=== PATIENT | female | born 2000 | race Caucasian/White ===

== ENCOUNTER 2021-11-15 11:30 | Outpatient (CLI) | payer OTHER, SELFPAY ==
--- NOTE | 2021-11-15 11:50 | ECG_ITS ---
Measurements Intervals [place] Rate: 62 P: 56 NM: 149 QRS: 83 QRSD: 98 T: 14 QT: 385 QTc: 394 Interpretive Statements SINUS RHYTHM INCOMPLETE RIGHT BUNDLE BRANCH BLOCK BASELINE WANDER- I, II, AVR, AVL, AVF BORDERLINE ECG Electronically Signed On 11-15-2021 12:44:09 CDT by Robert Johnson D.O.
== END 2021-11-15 11:31 | disposition home or self-care (01) ==
PROVIDERS: PCP Family Medicine; Visit Provider Physician Assistant Medical
DX: U07.1 COVID-19 (principal); R06.02 Shortness of breath; I45.10 Unspecified right bundle-branch block
CPT/HCPCS: 93005

== ENCOUNTER 2021-11-22 09:53 | Outpatient (CLI) | payer OTHER, SELFPAY ==
--- NOTE | 2021-11-22 09:57 | ECHO_ITS ---
Patient Info Name: Janki Penn Age: 21 years : 2000 Gender: Female Ht: 64 in Wt: 140 lbs BSA: 1.70 m2 HR: 65 bpm BP: 106 / 86 mmHg Technical Quality: Fair Exam Date: 11/22/2021 10:21 AM Exam Location: [facility] Patient Status: Outpatient Admit Date: 11/22/2021 Staff Ordering Physician: Tamara Patterson PAC Vp Corporate Development: Reagan Luna RDCS, RT Attending Provider: Tamara Patterson PAC Referring Physician: Leonardo LANDIN; Exam Type: CA echo doppler color flow Study Info Indications R94.31 - Abnormal electrocardiogram ECG EKG Complete two-dimensional, color flow and Doppler transthoracic echocardiogram is performed. Summary 1. Complete two-dimensional, color flow and Doppler transthoracic echocardiogram is performed. 2. Left ventricular chamber dimension is normal. 3. Left ventricular systolic function is normal, estimated at 60-65%. 4. The left ventricular diastolic function is normal. 5. E/e' 5 is not elevated. 6. There is trace tricuspid valve regurgitation. 7. The pericardium appears increased echogenicity of the posterior pericardium with significant thickness measuring 0.4 cm. Left Ventricle E/e' 5 is not elevated. Left ventricular chamber dimension is normal. Left ventricular systolic function is normal, estimated at 60-65%. The left ventricular diastolic function is normal. Right Ventricle Right ventricular systolic function is normal and with normal TAPSE 1.8 cm. Right ventricular chamber dimension is normal. Left Atria Left atrial chamber dimension is normal. Right Atria Right atrial chamber dimension is normal. Aortic Valve The aortic valve is trileaflet. There is no aortic valve stenosis. There is no aortic valve regurgitation. Pulmonic Valve There is no pulmonic regurgitation. Mitral Valve There is no mitral valve stenosis. There is no mitral valve regurgitation. Tricuspid Valve RVSP is not calculated due to an inadequate TR jet. There is trace tricuspid valve regurgitation. Pericardium/Pleural The pericardium appears increased echogenicity of the posterior pericardium with significant thickness measuring 0.4 cm. There is no pericardial effusion. Inferior Vena Cava Normal inferior vena cava with >50% collapse upon inspiration consistent with normal right atrial pressure, 5 mmHg. Aorta The aortic root size at the sinus of Valsalva is normal. Left Ventricular Outflow Tract Name Value Normal LVOT 2D LVOT Diameter 1.9 cm LVOT Doppler LVOT Peak Gradient 3 mmHg LVOT Mean Gradient 1 mmHg LVOT VTI 17 cm LVOT VTI/AV VTI Ratio 0.7 LVOT Stroke Volume 47 ml LVOT CO 3.4 l/min LVOT CI 2.0 l/min/m2 Mitral Valve Name Value Normal MV Doppler
== END 2021-11-22 09:54 | disposition home or self-care (01) ==
LOC: ANHCARD 09:55
PROVIDERS: PCP Family Medicine; Visit Provider Physician Assistant Medical
DX: R94.31 Abnormal electrocardiogram [ECG] [EKG] (principal); R06.02 Shortness of breath
CPT/HCPCS: 93306

== ENCOUNTER 2024-10-12 09:53 | Outpatient (CLI) | payer OTHER, SELFPAY ==
--- OUTSIDE RECORDS SUMMARY | 2024-10-12 09:57 | XMS_ITS | Clinical Summary ---
Author Organization [facility] Address [address] [place] [address] Phone Care Team Providers Care Procurement Analyst Name Role Phone Kalyn Church MD Primary Care Provider [phone] Allergies Active Allergy Reactions Criticality Noted Date Comments Azithromycin Rash Low 09/09/2010 Cephalexin Rash Low 09/09/2010 Medications pediatric multivitamins (KID'S VITAMINS) Oral Chew Take 1 Tab by mouth daily. 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 01/11/2017 Family History Medical History Relation Name Comments Cancer Father burkittis lymph ryan (14 years ago) Healthy Father Other Father Graves disease twice/ headaches (had one that affected speech stroke was ruled out) Healthy Mother Other Mother UC lg intestine removed Congenital Heart Defect Neg Hx Inheritable Arrhythmias Neg Hx Sudden Neg Hx Relation Name Status Comments Father Mother Social History Tobacco Use Types Packs/Day Years Used Date Smoking Tobacco: Never Smokeless Tobacco: Never Alcohol Use Standard Drinks/Week Comments No 0 (1 standard drink = 0.6 oz pur e alcohol) Comments No Sex and Gender Information Value Date Recorded Sex Assigned at Not on file Legal Sex Female 4:21 AM DESKTOP SUPPORT ASSOCIATE Gender Identity Not on file Sexual Orientation Not on file Occupation Industry Job Start Date Job End Date Not on file Not on file Not on file Not on file Last Filed Vital Signs Vital Sign Reading Time Taken Comments Blood Pressure 110/64 01/11/2017 9:55 AM CDT Pulse 78 10/01/2015 9:40 AM CDT Temperature 36.6 C (97.8 F) 09/10/2010 8:35 AM DESKTOP SUPPORT ASSOCIATE Respiratory Rate 18 10/01/2015 9:40 AM CDT Oxygen Saturation 100% 09/09/2010 12:00 PM DESKTOP SUPPORT ASSOCIATE Inhaled Oxygen Concentration - - Weight 58.7 kg (129 lb 6.4 oz) 01/11/2017 9:55 A M CDT Height 162 cm (5' 3.78 ) 01/11/2017 9:55 AM CDT Body Mass Index 22.36 01/11/2017 9:55 AM CDT Plan of Treatment Health Maintenance Due Date Last Done Comments HPV VACCINES (1 - 3-dose series) 2015 DTAP/TDAP/TD VACCINES (1 - Tdap) 2019 HEPATITIS B VACCINES (1 of 3 - 19+ 3-dose series) 02/14 CERVICAL CANCER SCREENING 2021 PAP SMEAR 2021 PAP SMEAR 2021 INFLUENZA VACCINE (#1) 2024 Insurance OPTIONS PPO [id number] [facility] [address] OPTIONS PPO [id number] Advance Directives For more information, please contact: [phone] * Full Code (Latest Code Status on File) Date Activated Date Inactivated Comments 09/09/2010 1:26 PM 09/10/2010 2:13 PM Care Teams Procurement Analyst Relationship Specialty Start Date End Date Kalyn Church MD PCP - General Pediatrics 01/24/12
--- OUTSIDE RECORDS SUMMARY | 2024-10-12 09:57 | XMS_ITS | Continuity of Care Document ---
Author Organization [facility] Address [address] [address] Phone Care Team Providers Care Senior Research Associate Name Role Phone Alexis Ennis MD Unavailable Unavailable Allergies, Adverse Reactions, Alerts Substance Reaction Status Criticality CEPHALEXIN MONOHYDRATE rash Active No In formation azithromycin rash Active No Information Medications Medication Instructions Dosage Effective Dates (start - stop) Status Comments Pari 180 mg tablet - Active Procedures Procedure Date OFFICE/OUTPATIENT VISIT EST Advance Directives Directive Yes / No Effective Date File Name No Information Encounters Encounter Description Practice Location Reason(s) For Visit Diagnoses Date Provider Providers Copied on Encounter [facility], [address] [place] [address], [facility], [phone] [facility] Spastic diplegic cerebral palsyAdolescent idiopathic scoliosis of lumbar regionAdolescen t idiopathic scoliosis of thoracic region 9 Raymon Espinoza. [address], [place], [address]. tel: [phone] [facility], [address] [place] [address], [address], [phone] [facility] Spastic diplegic cerebral palsyAdolescent idiopathic scoliosis of thoracic regionAdolescen t idiopathic scoliosis of lumbar regionAcquired planovalgus deformity of left foot 9 Raymon Espinoza. [address], [place], [address]. tel: [phone] [facility], [address], [address], tel:[phone] [facility] Adolescent idiopathic scoliosis of lumbar regionAdolescen t idiopathic scoliosis of thoracic regionSpastic diplegic cerebral palsy Feb-2 1-201 8 Wild Evelyn . [address] [place], [place], [id number] . tel: [phone] OFFICE/OUTPA TIENT VISIT EST [facility], [address] [place] [address], [address], tel:[phone] [facility] Neck Pain (chief complaint) Hallux valgus, leftAcquired planovalgus deformity of left footAcquired unequal limb length of left femurCervical strain, initial encounterMuscul ar torticollisMusc uloskeletal back painAdolescent idiopathic scoliosis of thoracic regionAdolescen t idiopathic scoliosis of lumbar regionOther acquired deformities of right foot Feb-1 3-201 7 Wild Rivas . [address] [place], [place], [id number] . tel: [phone] [facility], [address] [place] [address], [address], [phone] [facility] Spastic diplegia Sep-1 0-201 5 Stav[place]. [address] [place] [address], [id number] . tel: [phone] Family History Family Member Type Diagnosis Age At Onset No Information Payers Payer name Insurance type Covered democrat ID Authoriza tion(s) No Information Social History Type Description Quantity Date Captured Comments Sex Female Smoking Status No Information Chief Complaint And Reason For Visit No Information Reason For Referral Reason For Referral No Information Plan Of Treatment Date Type Action Status Referral Ordered: MRI SPI CANAL&CNTS LMBR C-MATRL Bilateral spine, lumbar Appointment date/timeframe: 08/15/2018 ordered Referral Ordered: RADEX SPI CRV MINIMUM 4 VIEWS ordered Referral Ordered: X-RAY EXAM ENTIRE SPI 1 VW ordered Referral Ordered: RADEX SPI ENTIRE SURV STD ANTEROPOST&LAT ordered Referral Ordered: RADEX PELVIS 1/2 VIEWS ordered History Of Present Illness Encounter Date Complaint History Of Prese nt Illness Neck Pain Functional Status Date Functional Assessmen t No Information Instructions Date Instruction Additional Infor mation No Information Assessments Type Assessment Date assessment Spastic diplegic cerebral palsy assessment Adolescent idiopathic scoliosis of lumbar region assessment Adolescent idiopathic scoliosis of thoracic region Patient Care Teams Name Effective Dates (start - stop) Status Members No Information
--- OUTSIDE RECORDS SUMMARY | 2024-10-12 09:57 | XMS_ITS | Encounter Summary ---
Author Organization [facility] Address [address] [place] [address] Care Team Providers Care Mortuary Beautician Name Role Phone Kalyn Church MD Primary Care Provider [phone] Encounter Details Date Type Department Care Team (Latest Contact Info) Description 12/18/2006 Outpatient Historical [facility] Luisito Lira MD Other Convulsions (CMS/HCC) (Primary Dx) Social History Tobacco Use Types Packs/Day Years Used Date Smoking Tobacco: Never Assessed Comments Unknown Sex and Gender Information Value Date Recorded Sex Assigned at Not on file Legal Sex Female 4:21 AM LINEN ROOM WORKER Gender Identity Not on file Sexual Orientation Not on file documented as of this encounter Plan of Treatment Not on file documented as of this encounter Visit Diagnoses Diagnosis Other convulsions- Primary documented in this encounter Care Teams Mortuary Beautician Relationship Specialty Start Date End Date Kalyn Church MD PCP - General Pediatrics 01/24/12 documented as of this encounter
--- OUTSIDE RECORDS SUMMARY | 2024-10-12 09:57 | XMS_ITS | Encounter Summary ---
Author Organization [facility] Address [address] [place] [address] Care Team Providers Care Scabbler Name Role Phone Kalyn Church MD Primary Care Provider [phone] Encounter Details Date Type Department Care Team (Late st Contact Info) Description 07/01/2005 Outpatient Historical [facility] Department of Peds at [address] [phone] Guevara Ochoa MD NO ADDRESS ON FILE Social History Tobacco Use Types Packs/Day Years Used Date Smoking Tobacco: Never Assessed Comments Unknown Sex and Gender Information Value Date Recorded Sex Assigned at Not on file Legal Sex Female 4:21 AM PROJECT SYSTEMS ENGINEER Gender Identity Not on file Sexual Orientation Not on file documented as of this encounter Plan of Treatment Not on file documented as of this encounter Visit Diagnoses Not on filedocumented in this encounter Care Teams Scabbler Relationship Specialty Start Date End Date Kalyn Church MD PCP - General Pediatrics 01/24/12 documented as of this encounter
--- OUTSIDE RECORDS SUMMARY | 2024-10-12 09:57 | XMS_ITS | Referral Summary ---
Author Organization [facility] Address [address] [place] [address] Care Team Providers Care Transport Rn Name Role Phone Demetrius Carbone MD Primary Care Provider Encounters Date Type Department Care Team Description 09/20/2024 6:30 PM SCRAP CARRIER Office Visit [facility] at [address] [address] Matt Whitaker NP Acute maxillary sinusitis, recurrence not specified (Primary Dx); Elevated blood pressure reading in office without diagnosis of hypertension from Last 3 Months Allergies Active Allergy Reactions Criticality Noted Date Comments Azithromycin Other (See comments),Rash Medium 09/09/2010 Reaction: UNKNOWN, , Reaction: Cephalexin Other (See comments),Rash Medium 09/09/2010 Reaction: UNKNOWN, , Reaction: Medications multivitamin capsule Take 1 capsule by mouth daily Active mometasone (NASONEX) 50 mcg/actuation nasal spray USE 2 SPRAY(S) IN EACH NOSTRIL ONCE DAILY NEEDED FOR ALLERGIES 0 Active norgestimate-et hinyl estradioL (ORTHO-CYCLEN) 0.25-35 mg-mcg per tablet Take 1 tablet by mouth daily 84 tablet 3 4 05/10/20 25 Active amoxicillin-cla vulanate (AUGMENTIN) suspension 400-57 mg/5 mLIndications:A cute maxillary sinusitis, recurrence not specified Take 10.9375 mL (875 mg of amoxicillin total) by mouth 2 (two) times a day for 7 days 153.5 mL 5 09/28/19 25 Active Problems Problem Noted Date Diagnosed Date COVID-19 10/26/2021 Allergic rhinitis 12/13/2018 Assessment & Plan (01/09/2019 2:01 PM CDT): Continue nasal saline and Nasacort Continue Pari Will call with Allergy blood test and hearing test Assessment & Plan (12/13/2018 4:58 PM CDT): Blood allergy testing - call with results Continue Pari Nasal saline (ocean spray, simply saline) Nasacort 2 sprays into each nostril while looking down over the sink, do not sniff in or blow nose after use. Follow up in 6 weeks Hearing test Dysfunction of both eustachian tubes 12/13/2018 Assessment & Plan (01/09/2019 3:03 PM CDT): Continue nasal saline and Nasacort Continue Pari Will call with Allergy blood test and hearing test Assessment & Plan (12/13/2018 4:59 PM CDT): Blood allergy testing - call with results Continue Pari Nasal saline (ocean spray, simply saline) Nasacort 2 sprays into each nostril while looking down over the sink, do not sniff in or blow nose after use. Follow up in 6 weeks Hearing test Hearing loss 12/13/2018 Assessment & Plan (01/09/2019 3:03 PM CDT): Hearing test on Monday, call with results - hearing 90% better Assessment & Plan (12/13/2018 4:59 PM CDT): Blood allergy testing - call with results Continue Pari Nasal saline (ocean spray, simply saline) Nasacort 2 sprays into each nostril while looking down over the sink, do not sniff in or blow nose after use. Follow up in 6 weeks Hearing test Vasovagal syncope 09/23/2015 Dizziness 09/23/2015 Infectious warts 05/12/2011 Migraine without aura and wi thout status migrainosus, not intractable 02/02/2011 Spastic diplegia 02/02/2011 Chronic infection of sinus 10/06/2010 Constipation 11/18/2009 Cerebral palsy 11/18/2009 Overview (10/26/2017): Description: Mild Epilepsy 11/18/2009 Immunizations Immunization Administration Dates Next Due DTaP / HiB 06/12/2001 DTaP, Unspecified 01/27/2005, 1,2000,05/02 Hep A, Unspecified 01/30/2008,02/08/2007 Hep B / HiB 2000 Hep B, Unspecified 2000,2000 HiB 2000,2000 IPV 01/27/2005, 1,2000,05/02 Influenza, Quadrivalent, Liz l Culture-based MDCK, Antibiotic Free, Intramuscular 04/30/2019 Influenza, Quadrivalent, Spl it, Preservative Free, Intramuscular 05/08/2020,04/29/2018,04/28/2018,05/25,05/01/2014 Influenza, Trivalent, IM (MDV) 04/11/2013 Influenza, Trivalent, Preser vative Free, Intramuscular 05/12/2017,05/08/2015 MMR 01/27/2005,03/22/2001 Meningococcal Conjugate (Menveo) 01/18/2018,01/14 Pneumococcal Conjugate, Unspecified 05/18,2000,2000,05/02 Tdap 02/01/2012 Varicella 01/13/2015,03/22/2001 Social History Tobacco Use Types Packs/Day Years Used Date Smoking Tobacco: Never Smokeless Tobacco: Never Tobacco Cessation:Counseling Given: Not Answered Alcohol Use Standard Drinks/Week Comments Never 0 (1 standard drink = 0.6 oz pur e alcohol) AUDIT-C Answer Date Recorded Q1: How often do you have a drink containing alc ohol? Never 04/15/2024 Average Number of Drinks Not on file 024 Q3: How often do you have si x or more drinks on one occasion? Never 04/15/2024 Exercise Vital Sign Answer Date Recorde d On average, how many days pe r week do you engage in moderate to strenuous exercise (like a brisk walk)? 3 days 06/19/2020 On average, how many minutes do you engage in exercise at this level? 30 min 06/19/2020 Personal Safety Answer Date Recorded Have you ever been in or are you currently in a harmful physical or emotional relationship or is someone making you feel afraid or unsafe? Denies 11/21/2022 Comments No Sex and Gender Information Value Date Recorded Sex Assigned at Not on file Legal Sex Female 11:07 PM SCRAP CARRIER Gender Identity Not on file Sexual Orientation Not on file Last Filed Vital Signs Vital Sign Reading Time Taken Comments Blood Pressure 120/92 09/20/2024 6:32 PM SCRAP CARRIER Pulse 82 09/20/2024 6:32 PM SCRAP CARRIER Temperature 36.4 C (97.6 F) 09/20/2024 6:32 PM SCRAP CARRIER Respiratory Rate 22 09/20/2024 6:32 PM SCRAP CARRIER Oxygen Saturation 100% 09/20/2024 6:32 PM SCRAP CARRIER Inhaled Oxygen Concentration - - Weight 65.8 kg (145 lb) 09/20/2024 6:32 PM SCRAP CARRIER Height 160 cm (5' 3 ) 09/20/2024 6:32 PM SCRAP CARRIER Body Mass Index 25.69 09/20/2024 6:32 PM SCRAP CARRIER Plan of Treatment Not on file Insurance [employer] [employer] [facility] ACCESS CHOICE Care Teams Transport Rn Relationship Specialty Start Date End Date Demetrius Carbone MD PCP - General 01/09/19
--- OUTSIDE RECORDS SUMMARY | 2024-10-12 09:57 | XMS_ITS | Clinical Summary ---
Author Organization [facility] Address [address] [address] Care Team Providers Care Air Grinder Name Role Phone Kalyn Church MD Primary Care Provider [phone] Source Comments [facility],non-owned Affiliates and Associated Physician Practices is amultiple site organization consisting of ambulatory clinics and hospital sitesin [place], [place], [place] and [place]. This disclosure is being madepursuant to the Care Everywhere program and may not contain all information available regarding this patient. Last updated 18.[facility] Allergies Active Allergy Reactions Criticality Noted Date Comments Cephalexin 06/04/2017 Orapred Other 06/04/2017 shaky Pseudoephedrine Base Other 06/04/2017 Makes pt shaky Azithromycin 06/04/2017 Medications * Be aware that medications may not be up to date on this document. Alwaysverify current medications with the patient. Medication Sig Dispensed Refills Start Date End Date Status Fexofenadine HCl (MADHU PO) Active Triamcinolone Acetonide (NASACORT ALLERGY 24HR NA) Active Multiple Vitamins-Minerals (MULTIVITAMIN ADULT PO) Active amoxicillin clavulanate (AUGMENTIN ES) 600-42.9 MG/5ML suspensionIndication s:Acute ethmoidal sinusitis, recurrence not specified 7mls PO BID for 10 days for sinus infection 145 mL 10/05/2018 Active Additional Information Patient not taking.Reported on 11/21/2018 Family History Medical History Relation Name Comments Cancer - Other Father lymphoma Thyroid Disease Father Ulcerative Colitis Mother Relation Name Status Comments Father Mother Social History Tobacco Use Types Packs/Day Years Used Date Smoking Tobacco: Never Smokeless Tobacco: Never Sex and Gender Information Value Date Recorded Sex Assigned at Not on file Gender Identity Not on file Sexual Orientation Not on file Last Filed Vital Signs Vital Sign Reading Time Taken Comments Blood Pressure 110/72 11/21/2018 10:12 AM CDT Pulse 87 11/21/2018 10:12 AM CDT Temperature 37.1 C (98.7 F) 11/21/2018 10:12 AM CDT Respiratory Rate 16 11/21/2018 10:12 AM CDT Oxygen Saturation 98% 11/21/2018 10:12 AM CDT Inhaled Oxygen Concentration - - Weight 60.8 kg (134 lb) 11/21/2018 10:12 AM CDT Height 162.6 cm (5' 4 ) 11/21/2018 10:12 AM CDT Body Mass Index 23 11/21/2018 10:12 AM CDT Plan of Treatment Health Maintenance Due Date Last Done Comments PAP SMEAR 2000 HIV SCREENING 2015 HPV VACCINE (1 - 3-dose series) 2015 CHLAMYDIA/GONORRHEA SCREENING 2016 HEPATITIS C SCREENING 02/26/2018 DTAP/TDAP/TD VACCINES (1 - Tdap) 2019 HEPATITIS B VACCINE (1 of 3 - 19+ 3-dose series) 2019 COVID-19 VACCINE (1 - 2023-2 5 season) 2024 INFLUENZA VACCINE (#1) 2024 DEPRESSION SCREENING 07/17/2024 ZOSTER VACCINE (1 of 2) 2050 HIB VACCINE Aged Out No longer eligi ble based on patient's age to complete this topic MENINGOCOCCAL (Group B) VACC INE SHARED DECISION-MAKING Aged Out No longer eligibl e based on patient's age to complete this topic MENINGOCOCCAL GROUPS A/C/Y/W VACCINE Aged Out No longer eligible b ased on patient's age to complete this topic PNEUMOCOCCAL VACCINE Aged Out No long er eligible based on patient's age to complete this topic Care Teams Air Grinder Relationship Specialty Start Date End Date Kalyn Church MD [address] [address] PCP - General Pediatrics 06/04/17
--- OUTSIDE RECORDS SUMMARY | 2024-10-12 09:57 | XMS_ITS | Encounter Summary ---
Author Organization [employer] Address [address] [place] [address] Care Team Providers Care Patient Services Assistant Name Role Phone Kalyn Church MD Primary Care Provider [phone] Encounter Details Date Type Department Care Team (Latest Contact Info) Description 02/18/2002 Outpatient Historical [facility] Luisito Lira MD CONGENITAL DIPLEGIA (CMS/HCC) (Primary Dx) Social History Tobacco Use Types Packs/Day Years Used Date Smoking Tobacco: Never Assessed Comments Unknown Sex and Gender Information Value Date Recorded Sex Assigned at Not on file Legal Sex Female 4:21 AM DOLL MAKER Gender Identity Not on file Sexual Orientation Not on file documented as of this encounter Plan of Treatment Not on file documented as of this encounter Visit Diagnoses Diagnosis Congenital diplegia (CMS/HCC)- Primary Congenital diplegia documented in this encounter Care Teams Patient Services Assistant Relationship Specialty Start Date End Date Kalyn Church MD PCP - General Pediatrics 01/24/12 documented as of this encounter
--- OUTSIDE RECORDS SUMMARY | 2024-10-12 09:57 | XMS_ITS | Encounter Summary ---
Author Organization [facility] Address [address] [place] [address] Care Team Providers Care Rubber Gasket Inspector Trimmer Name Role Phone Kalyn Church MD Primary Care Provider [phone] Encounter Details Date Type Department Care Team (Late st Contact Info) Description 07/01/2005 Outpatient Historical [facility] Department of Peds at [address] [phone] Guevara Ochoa MD NO ADDRESS ON FILE Social History Tobacco Use Types Packs/Day Years Used Date Smoking Tobacco: Never Assessed Comments Unknown Sex and Gender Information Value Date Recorded Sex Assigned at Not on file Legal Sex Female 4:21 AM ISSUE CLERK Gender Identity Not on file Sexual Orientation Not on file documented as of this encounter Plan of Treatment Not on file documented as of this encounter Visit Diagnoses Not on filedocumented in this encounter Care Teams Rubber Gasket Inspector Trimmer Relationship Specialty Start Date End Date Kalyn Church MD PCP - General Pediatrics 01/24/12 documented as of this encounter
--- OUTSIDE RECORDS SUMMARY | 2024-10-12 09:57 | XMS_ITS | Clinical Summary ---
Author Organization [facility] Address [address] [place] [address] Care Team Providers Care Combine Inspector Name Role Phone Demetrius Carbone MD Primary Care Provider [phone] Allergies Active Allergy Reactions Criticality Noted Date [...] 11/18/2009 Overview (10/26/2017): Description: Mild Epilepsy 11/18/2009 Encounters Date Type Department Care Team Description 09/20/2024 6:30 PM NETWORK SYSTEMS ANALYST Office Visit [facility] at [address] [address] Matt Whitaker NP Acute maxillary sinusitis, recurrence not specified (Primary Dx); Elevated blood pressure reading in office without diagnosis of hypertension from Last 3 Months Immunizations Immunization Administration Dates Next Due DTaP [...] Conjugate, Unspecified 05/18,2000,2000,05/02 Tdap 02/01/2012 Varicella 01/13/2015,03/22/2001 Surgical History Surgery Date Site/Laterality Comments TYMPANOSTOMY TUBE PLACEMENT Ear Pressure Equalization Tube, Insertion, Bilaterally - (Added by TW Conv) FUNCTIONAL ENDOSCOPIC SINUS SURGERY 07/17/2009 - 07/16/2010 Bilateral ADENOIDECTOMY Medical History Medical History Date Comments Allergic 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 Cerebral palsy (HCC) Gastric reflux Migraines Family History Medical History Relation Name Comments Lymphoma Father Pancreatitis Other 1 Pancreatic Diso rders - (Added by TW Conv) Seizures Other 2 Convulsions - ( Added by TW Conv) Intestinal polyp Other 3 Benign Poly ps Of The Large Intestine - (Added by TW Conv) Constipation Other 4 Constipation - (Added by TW Conv) Irritable bowel syndrome Other 5 Irr itable Bowel Syndrome - (Added by TW Conv) Heart disease Other 6 Heart Disease - (Added by TW Conv) Asthma Other 7 Asthma - (Added by TW Conv) Hypertension Other 8 Hypertension - (Added by TW Conv) Migraines Other 9 Migraine Headac he - (Added by Conv) Relation Name Status Comments Father Other 1 Other 2 Other 3 Other 4 Other 5 Other 6 Other 7 Other 8 Other 9 Social History Tobacco Use Types Packs/Day Years [...] on file Legal Sex Female 11:07 PM NETWORK SYSTEMS ANALYST Gender Identity Not on file Sexual Orientation Not on file Obstetrics History Para Term AB IAB SAB Ectopic Multiple Livin g Live Births 0 0 0 0 0 0 0 0 0 0 0 Last Filed Vital Signs Vital Sign Reading Time Taken Comments Blood Pressure 120/92 09/20/2024 6:32 PM NETWORK SYSTEMS ANALYST Pulse 82 09/20/2024 6:32 PM NETWORK SYSTEMS ANALYST Temperature 36.4 C (97.6 F) 09/20/2024 6:32 PM NETWORK SYSTEMS ANALYST Respiratory Rate 22 09/20/2024 6:32 PM NETWORK SYSTEMS ANALYST Oxygen Saturation 100% 09/20/2024 6:32 PM NETWORK SYSTEMS ANALYST Inhaled Oxygen Concentration - - Weight 65.8 kg (145 lb) 09/20/2024 6:32 PM NETWORK SYSTEMS ANALYST Height 160 cm (5' 3 ) 09/20/2024 6:32 PM NETWORK SYSTEMS ANALYST Body Mass Index 25.69 09/20/2024 6:32 PM NETWORK SYSTEMS ANALYST Plan of Treatment Health Maintenance Due Date Last Done Comments Cervical Cancer Screening 2000 Depression Screening 2000 Hepatitis C Screening 2000 DTaP/Tdap/Td Vaccine (7 - Td or Tdap) 01/31/2022 02/01/2012, 01/27/2005, 06/12/2001, Additional history exists Influenza Vaccine (#1) 2024 , 05/08/2020, 04/30/2019, Additional history exists Regular Well Visit/Exam 18-64 04/15/2025 04/15/2024, 06/19/2020 Hepatitis B Screening Completed 2000 , 2000, 2000 Pneumococcal vaccine <65 Completed 001, 2000, 2000, Additional history exists Varicella Vaccines Completed 01/13/2015, 03/22/2001 HPV Vaccines Discontinued Insurance [facility] CHOICE PLUS [facility] CHOICE PLUS [facility] CHOICE PLUS [employer] [employer] CHOICE Care Teams Combine Inspector Relationship Specialty Start Date End Date Demetrius Carbone MD [facility] - General 01/09/19
--- OUTSIDE RECORDS SUMMARY | 2024-10-12 09:57 | XMS_ITS | Clinical Summary ---
Author Organization [facility] Address [address] [place] [address] Phone Care Team Providers Care Teacher Tutor Name Role Phone Demetrius Carbone MD Primary Care Provider [phone] Allergies Active Allergy Reactions Criticality Noted Date Comments Cephalexin Rash 11/04/2023 Azithromycin Rash 11/04/2023 Medications fexofenadine (MADHU) 60 MG Tablet Take by mouth. Active Active Problems No known active problems Social History Tobacco Use Types Packs/Day Years Used Date Smoking Tobacco: Never Assessed Comments Unknown Sex and Gender Information Value Date Recorded Sex Assigned at Not on file Legal Sex Female 9:45 PM CDT Gender Identity Not on file Sexual Orientation Not on file Last Filed Vital Signs Vital Sign Reading Time Taken Comments Blood Pressure 133/86 11/04/2023 6:35 PM CDT Pulse 77 11/04/2023 6:35 PM CDT Temperature 36.7 C (98 F) 11/04/2023 6:35 PM CDT Respiratory Rate 16 11/04/2023 6:35 PM CDT Oxygen Saturation 99% 11/04/2023 6:35 PM CDT Inhaled Oxygen Concentration - - Weight 63.3 kg (139 lb 8 oz) 11/04/2023 6:35 PM CDT Height 160 cm (5' 3 ) 11/04/2023 6:35 PM CDT Body Mass Index 24.71 11/04/2023 6:35 PM CDT Plan of Treatment Health Maintenance Due Date Last Done Comments Hepatitis C Virus (HCV) Screening 2000 Human Papillomavirus (HPV) Immunization (1 - 3-dose series) 2015 Pap Smear 2021 Influenza Immunization (#1) 03/17/202405/17, 05/10/2022, 05/14/2021, Additional history exists SARS-COV-2 Immunization ( season) 2024 04/12/2022, 04/19/2021, 09/21/2020, Additional history exists Respiratory Syncytial Virus (RSV) Immunization (Adult) (1 - 1-dose 75+ series) 2075 Hepatitis B Immunization Completed 001, 2000, 2000 Pneumococcal Immunization Combined Aged Out 06/12/2001, 2000, 2000, Additional history exists No longer eligible based on patient's age to complete this topic Meningococcal Immunization (ACWY) Completed 01/18/2018, 02/01/2012 TdaP Immunization Completed 02/17/2022, 02/01/2012 Rotavirus Immunization Aged Out No lo nger eligible based on patient's age to complete this topic Insurance [facility] Care Teams Teacher Tutor Relationship Specialty Start Date End Date Demetrius Carbone MD [address] [address] PCP - General Family Medicine 11/04/23
--- OUTSIDE RECORDS SUMMARY | 2024-10-12 09:57 | XMS_ITS | Encounter Summary ---
Author Organization [employer] Address 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
--- OUTSIDE RECORDS SUMMARY | 2024-10-12 09:57 | XMS_ITS | Encounter Summary ---
Author Organization [employer] Address [address] [place] [address] Care Team Providers Care Direct Marketing Analyst Name Role Phone Kalyn Church MD Primary Care Provider [phone] Encounter Details Date Type Department Care Team (Late st Contact Info) Description 12/18/2006 Outpatient Historical [facility] [place] [address] [place] [address] Luisito Lira MD Social History Tobacco Use Types Packs/Day Years Used Date Smoking Tobacco: Never Assessed Comments Unknown Sex and Gender Information Value Date Recorded Sex Assigned at Not on file Legal Sex Female 4:21 AM 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
--- OUTSIDE RECORDS SUMMARY | 2024-10-12 09:57 | XMS_ITS | Encounter Summary ---
Author Organization [employer] Address 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
--- OUTSIDE RECORDS SUMMARY | 2024-10-12 09:57 | XMS_ITS | Encounter Summary ---
Author Organization [facility] [facility] [facility] Address [address] [place] [address] Care Team Providers Care Department Administrator Name Role Phone Kalyn Church MD Primary Care Provider [phone] Encounter Details Date Type Department Care Team (Latest Contact Info) Description 07/01/2005 Outpatient Historical [facility] PATIENT IN A BED Luisito Lira MD EPILEPSY NOS W/O MENTN INTRACTABLE (CMS/[facility]) (Primary Dx) Social History Tobacco Use Types Packs/Day Years Used Date Smoking Tobacco: Never Assessed Comments Unknown Sex and Gender Information Value Date Recorded Sex Assigned at Not on file Legal Sex Female 4:21 AM NURSING INFORMATION SYSTEMS COORDINATOR Gender Identity Not on file Sexual Orientation Not on file documented as of this encounter Plan of Treatment Not on file documented as of this encounter Visit Diagnoses Diagnosis Unspecified epilepsy without mention of intractable epilepsy (CMS/HCC)- Primary Unspecified epilepsy without mention of intractable epilepsy documented in this encounter Care Teams Department Administrator Relationship Specialty Start Date End Date Kalyn Church MD PCP - General Pediatrics 01/24/12 documented as of this encounter
--- OUTSIDE RECORDS SUMMARY | 2024-10-12 09:57 | XMS_ITS | Encounter Summary ---
Author Organization [employer] Address [address] [place] [address] Care Team Providers Care Coal Feeder Operator Name Role Phone Kalyn Church MD Primary Care Provider [phone] Encounter Details Date Type Department Care Team (Latest Contact Info) Description 05/31/2005 Outpatient Historical [facility] Luisito Lira MD ABNORMAL ELECTROENCEPHALOGRAM (Primary Dx) Social History Tobacco Use Types Packs/Day Years Used Date Smoking Tobacco: Never Assessed Comments Unknown Sex and Gender Information Value Date Recorded Sex Assigned at Not on file Legal Sex Female 4:21 AM APPLICATION ENGINEER Gender Identity Not on file Sexual Orientation Not on file documented as of this encounter Plan of Treatment Not on file documented as of this encounter Visit Diagnoses Diagnosis Nonspecific abnormal electroencephalogram (EEG)- Primary documented in this encounter Care Teams Coal Feeder Operator Relationship Specialty Start Date End Date Kalyn Church MD PCP - General Pediatrics 01/24/12 documented as of this encounter
--- OUTSIDE RECORDS SUMMARY | 2024-10-12 09:57 | XMS_ITS | Continuity of Care Document ---
Author Organization [facility] Address [address] [place] [address] Phone Care Team Providers Care Farm Adviser Name Role Phone Jus Mortensen MD Unavailable Unavailable Allergies, Adverse Reactions, Alerts Substance Reaction Status Criticality No Known Allergies Active No Inform ation Advance Directives Directive Yes / No Effective Date File Name No Information Encounters Encounter Description Practice Location Reason(s) For Visit Diagnoses Date Provider Providers Copied on Encounter [facility], [address], [place], [place], [id number] , [place] tel:[phone] [place] Allergy antibiotic allergy (chief complaint) Adverse reaction to antibioticSeasonal allergic rhinitis due to other allergic triggerPersonal history of sinusitis [address] Festus Luu[address] [place] [address], [id number] , [place]. tel:[phone] Referring Provider: Kalyn Church, [address] [facility] [address], [place], [address]. tel:[phone] Family History Family Member Type Diagnosis Age At Onset Mother Problem (finding) Allergies Payers Payer name Insurance type Covered constitution party ID Authorvickya diego(s) [facility] [id number] Social History Type Description Quantity Date Captured Comments Alcohol Use Details Unknown Caffeine Use Details Unknown Tobacco Use Status Current non-smoker 18 Smoking Status Never smoker Non-Smoking Tobacco Use Details : No Details Available : No Details Available Sex Female Vital Signs Date / Time: Height Weight BMI Pulse Rate Blood Pressure Temperature Respiratory Rate Body Surface Area Head Circumference Head Circ. Percentile Wt./[place]. Percentile BMI percentile Pulse Ox Inhaled Ox 1:14 PM 64.00 in 62.142 kg (137.00 lbs) 23.5 2 kg/m eter (2) 97 /min 125/67 mm[Hg] 73 Chief Complaint And Reason For Visit From encounter dated '01/24/2018 13:00'. antibiotic allergy (chief complaint) Reason For Referral Reason For Referral No Information History Of Present Illness Encounter Date Complaint History Of Prese nt Illness antibiotic allergy antibiotic allergy (comments) lagos d her physical at PCP about 10 days agoHas had Augmentin and Amoxicillin many times in past for otitis and sinusitis. Last previous dose of Augmentin 07/02.Had taken Augmentin (liquid) several months ago and throat felt funny (hard to swallow), face was red after the second or third day (taken BID). No itching but after a dose of Benadryl and steroids in the ER she had generalized itching and coughing (no wheeze). No rash noted. No GI symptoms. No CVS symptoms. No abnormal vitals noted or relayed to mom. Had sinus surgery (FESS) and adenoidectomy in 5th grade (with Emil Bates at [facility]) and has been some better since then (treats about 1-2 /year (mostly fall/winter) instead of >5/year without seasonal patterns). Never allergy tested but takes Pari and Nasonex daily year round for seasonal allergies (worse in spring/fall) As a baby avoided Keflex and Azithromycin but not sure there was a good reason. Functional Status Date Functional Assessmen t No Information Instructions Date Instruction Additional Infor ernie Not presently intere sted in skin testing for inhalant allergensWill continue daily medications for allergy May consider Immunotherapy in future to reduce requirements for medications Related to Seasonal allergic rhinitis due to other allergic trigger Only 1-2 per year no w since sinus surgery about 7 years ago. Related to Personal history of sinusitis Unlikely that your A ugmentin reaction was due to a true penicillin allergy based on the timing of the symptoms in relation to the dosing of the drug. Will however go ahead with Penicillin skin testing in the future (off antihistamine = Pari for a week) and at least a month after any further reactions. Reviewed Penicillin skin testing and given handout Will schedule in late summer hopefully before ragweed season starts You may however remain on the Mometasone nasal spray as this does not affect testing. Related to Adverse reaction to antibiotic Medication management Assessments Type Assessment Date assessment Adverse reaction to antibiotic J assessment Seasonal allergic rhinitis due t o other allergic trigger assessment Personal history of sinusitis Ju Patient Care Teams Name Effective Dates (start - stop) Status Members No Information
--- OUTSIDE RECORDS SUMMARY | 2024-10-12 09:57 | XMS_ITS | Encounter Summary ---
Author Organization [employer] Address 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
--- OUTSIDE RECORDS SUMMARY | 2024-10-12 09:57 | XMS_ITS | Encounter Summary ---
Author Organization [facility] Address 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
[2024-10-12 10:43] LABS: Add Urine Microscopic? NO; Appearance Urine Clear (Clear); Bilirubin Urine Negative (Negative); Blood Urine Negative (Negative); Color Urine Yellow (Yellow); Glucose Urine UA Negative (Negative); Ketones Urine Negative (Negative); Leukocyte Esterase Ur Negative LEU/UL (Negative); Nitrate Urine Negative (Negative); Protein Urine Negative (Negative); Specific Grav Ur 1.007 (1.001-1.035); Urobilinogen Urine 0.2 mg/dL (<2.0); pH Urine 7.5 (5.0-9.0)
== END 2024-10-12 09:54 | disposition home or self-care (01) ==
LOC: ANHLAB 09:56
PROVIDERS: PCP Family Medicine; Visit Provider Family Medicine
DX: R30.0 Dysuria (principal)
CPT/HCPCS: 81003; 87086

== ENCOUNTER 2024-11-12 08:33 | Outpatient (CLI) | payer OTHER, SELFPAY ==
--- NOTE | ~2024-11-12 | XR_ITS ---
Left foot Technique: AP, oblique, and lateral views were obtained. Clinical History: Injury Findings: No acute fracture or dislocation is seen. Osseous alignment is anatomic. Joint spaces are p reserved without erosive or degenerative change. Soft tissues are unremarkable. Impression: Unremarkable left foot radiographs. Reviewed, dictated and finalized at location . Impression: Unremarkable left foot radiographs.
== END 2024-11-12 08:34 | disposition home or self-care (01) ==
LOC: MICIMG 08:36
PROVIDERS: PCP Family Medicine; Visit Provider Nurse Practitioner Family
DX: S99.922A Unspecified injury of left foot, initial encounter (principal); X58.XXXA Exposure to other specified factors, initial encounter
CPT/HCPCS: 73630